=== PATIENT | male | born 1980 | race Asian ===

== ENCOUNTER 2021-03-05 23:20 | Observation (INO) | payer SELFPAY ==
[2021-03-06 00:15] VITALS: BMI 26.3
[2021-03-06 02:49] LABS: EOS % 0.2 % (0-4.5); HEMATOCRIT 51.5 % (35.4-49); HEMOGLOBIN 17.4 GM/dL (11.7-16.9); LYMPH % 23.2 % (8-40); MCH 29.5 pg (25.7-33.7); MCHC 33.7 g/dl (32.0-35.9); MEAN CELL VOLUME 87.6 fl (80-96); MEAN PLT VOLUME 7.7 fl (7.5-11.1); MONO % 7.2 % (3.8-10.2); NEUT % 68.4 % (42.8-82.8); PLATELET COUNT 233 10^3/uL (134-434); RBC 5.88 M/mm3 (4.00-5.60); WHITE BLOOD COUNT 6.5 K/mm3 (4.0-10.0)
[2021-03-06 03:05] LABS: CHLORIDE 104 mmol/L (98-107); SODIUM 142 mmol/L (136-145)
[2021-03-06 03:07] LABS: ALBUMIN 4.4 g/dl (3.4-5.0); ANION GAP 8 MMOL/L (8-16); BLOOD UREA NITROGEN 14.8 mg/dL (7-18); CALCIUM 9.6 mg/dL (8.5-10.1); CO2 30 mmol/L (21-32); GLUCOSE,RANDOM 97 mg/dL (74-106); MAGNESIUM 2.3 mg/dL (1.8-2.4)
[2021-03-06 03:10] LABS: CREATININE 1.2 mg/dL (0.55-1.3); SGOT/AST 27 U/L (15-37); SGPT/ALT 44 U/L (13-61)
[2021-03-06 03:13] LABS: ALK PHOS 61 U/L (45-117); BILIRUBIN,TOTAL 0.5 mg/dL (0.2-1); TOT PROT 7.8 g/dl (6.4-8.2)
[2021-03-06] MEDS ORDERED: LACTATED RINGERS SOLUTION 1000 ML INFUS.BAG IV ONE (03:30)
[2021-03-06 03:31] LABS: INR 1.03 (0.83-1.09); PROTHROMBIN TIME (PATIENT) 11.9 SEC (9.7-13.0)
[2021-03-06 03:34] LABS: ACTIVATED PTT 33.5 SECONDS (25.2-36.5)
[2021-03-06] MEDS ORDERED: IBUPROFEN 600 MG TABLET (FP) PO ONE ×2 (05:30→05:32)
[2021-03-06] MEDS ORDERED: ACETAMINOPHEN 325 MG TABLET (FP) PO PRN (09:02)
[2021-03-06] MEDS ORDERED: ACETAMINOPHEN 1000 MG/100 ML BAG IVPB PRN (09:40)
[2021-03-06] MEDS ORDERED: ACETAMINOPHEN INJECTION 100 ML IVPB ONE (09:53)
[2021-03-06 15:47] VITALS: BP 121/54; PULSE 66; TEMP 97.8
[2021-03-07] MEDS ORDERED: ASPIRIN COATED 81 MG TABLET.EC PO SCH (10:00)
== END 2021-03-06 15:35 | disposition home or self-care (01) ==
LOC: JER 23:20 → JERBED 03-06 04:53
PROVIDERS: ADMIT Internal Medicine; ATTEND Internal Medicine
PROC: 3E033NZ Introduction of Analgesics, Hypnotics, Sedatives into Peripheral Vein, Percutaneous Approach (ICD-10-PCS; principal; 2021-03-06)
PROC: 3E0337Z Introduction of Electrolytic and Water Balance Substance into Peripheral Vein, Percutaneous Approach (ICD-10-PCS; 2021-03-06)
DX: R51.9 Headache, unspecified (principal); R06.02 Shortness of breath; D45 Polycythemia vera; R42 Dizziness and giddiness; R20.0 Anesthesia of skin; R20.2 Paresthesia of skin; R45.82 Worries
CPT/HCPCS: 36415; 70450-TC; 71046-TC-FY; 76700-TC; 80053; 82550; 82553; 82668; 83735; 84484; 85025; 85610; 85730; 86308; 87651; 87804; 87807; 93005; 93010; 96374; 99285-25; C9803; G0378; J0131; U0003; U0005

== ENCOUNTER 2021-09-08 11:41 | Emergency (ER) | payer OTHER ==
[2021-09-08 11:58] VITALS: BMI 31.0
[2021-09-08] MEDS ORDERED: SODIUM CHLORIDE 0.9% 500 ML INFUS.BAG IV ONE (12:48)
[2021-09-08] MEDS ORDERED: BEBTELOVIMAB (EUA) 175 MG/2 ML VIAL IVPUSH ONE (12:48)
[2021-09-08] MEDS ORDERED: ACETAMINOPHEN 1000 MG/100 ML BAG IVPB ONE (12:49)
[2021-09-08] MEDS ORDERED: ACETAMINOPHEN INJECTION 100 ML IVPB ONE (14:36)
[2021-09-08 15:37] VITALS: BP 109/60; PULSE 85; RESP 18; TEMP 99.8
== END 2021-09-08 15:37 | disposition home or self-care (01) ==
LOC: JER 11:41
PROC: 3E033NZ Introduction of Analgesics, Hypnotics, Sedatives into Peripheral Vein, Percutaneous Approach (ICD-10-PCS; principal; 2021-09-08)
PROC: 3E033GC Introduction of Other Therapeutic Substance into Peripheral Vein, Percutaneous Approach (ICD-10-PCS; 2021-09-08)
DX: U07.1 COVID-19 (principal)
CPT/HCPCS: 96374; 96375; 99284-25; M0222; Q0222